=== PATIENT | female | born 1945 | race Caucasian/White ===

== ENCOUNTER 2018-08-25 05:16 | Inpatient (IN) | payer MEDICARE, BC ==
[~2018-08-25] VITALS: Ht 152.4 cm; Wt 48.1 kg
[2018-08-25] MEDS ORDERED: CELECOXIB 100 MG CAPSULE ONE (06:14)
[2018-08-25] MEDS ORDERED: ACETAMINOPHEN 325 MG TABLET ONE (06:14)
[2018-08-25] MEDS ORDERED: oxyCODONE HCL SR 10MG TAB.SR.12H PO ONE (06:14)
[2018-08-25] MEDS ORDERED: ANESTHESIA TRAY IN PYXIS 1 EA TRAY MC ONE (06:26)
[2018-08-25] MEDS ORDERED: TRANEXAMIC ACID 3,000 MG in SODIUM CHLORIDE IRRIG SOLUTION 70 ML IR ONE (07:30)
[2018-08-25] MEDS ORDERED: FENTANYL PF 250MCG/5ML AMPUL ONE (09:20)
[2018-08-25] MEDS ORDERED: HYDROMORPHONE 1 MG/1 ML DISP.SYRIN ONE ×2 (10:07→10:15)
--- NOTE | 2018-08-25 10:45 | NUR ---
M/S LONE LEAD LINEMAN NOTES RECEIVED PATIENT VIA GURNEY ACCOMPANIED BY 2 OR STAFF FOR S/P RIGHT TOTAL HIP ARTHROPLASTY. PATIENT A/OX4 AND RESPONSIVE TO ALL STIMULI, ABLE TO MAKE NEEDS KNOWN. RESPIRATION EVEN AND NON LABORED WITH NO ACUTE RESPIRATORY DISTRESS, ON OXYGEN AT 2LPM VIA N/C AND ABLE TO TOLERATE WELL. ABDOMEN SOFT AND NON DISTENDED WITH ACTIVE BOWEL SOUNDS TO ALL QUADRANTS. PATIENT DENIES PAIN AND DISCOMFORT AT THIS TIME. SKIN WARM TO TOUCH AND DRY. WITH ABDUCTION PILLOW PRESENT IN BETWEEN LEGS. IV SITE AT LEFT WRIST GAUGE 18 WITH NO S/SX OF INFILTRATION, PATENT IN FLUSHING. ALL ORDERS FROM OR UNDER DR. RASMUSSEN NOTED AND CARRIED OUT. ALL CONCERNS FROM, PATIENT ADDRESSED. PLACED CALL LIGHT WITHIN REACH TO ENSURE SAFETY. WILL CONTINUE TO EVALUATE CARE.
[2018-08-25] MEDS ORDERED: HYDROMORPHONE 1 MG/1 ML DISP.SYRIN IV PRN (11:00)
[2018-08-25] MEDS ORDERED: ACETAMINOPHEN 325 MG TABLET PO PRN (11:00)
[2018-08-25] MEDS ORDERED: ONDANSETRON HCL/PF 4 MG/2 ML VIAL IVP PRN (11:00)
[2018-08-25] MEDS ORDERED: HYDROCODONE/APAP 5/325MG 1 EACH TABLET PO PRN (11:00)
[2018-08-25] MEDS ORDERED: DOCUSATE SODIUM 250 MG CAPSULE PO PRN (11:00)
[2018-08-25] MEDS: IV LR 1000 ML 1,000 ML IV PRN (11:06)
[2018-08-25 16:00] VITALS: BP 163/99
[2018-08-25] MEDS: ANCEF 1 GM/50 ML D5W IV SCH ×2 (16:41)
--- NOTE | 2018-08-25 18:00 | NUR ---
M/S RN CLOSING NOTES PATIENT A/O X 4 AND ABLE TO MAKE NEEDS KNOWN, RESPONSIVE TO ALL STIMULI. RESPIRATION EVEN AND NON LABORED WITH NO ACUTE RESPIRATORY DISTRESS, OXYGEN AT 2LPM VIA NASAL CANNULA AND ABLE TO TOLERATE WELL. ABDOMEN SOFT AND NON DISTENDED WITH ACTIVE BOWEL SOUNDS TO ALL QUADRANTS, ABLE TO URINATE USING BEDPAN. PATIENT DENIES PAIN AND DISCOMFORT SINCE ADMITTED. SKIN WARM TO TOUCH AND DRY, ABDUCTED PILLOW IN BETWEEN LEGS, ICE PACK IN PLACE ON RIGHT HIP FOR S/P TOTAL ARTHROPLASTY. IV SITE AT LEFT WRIST GAUGE 18 WITH NO S/SX OF INFILTRATION, PATENT IN FLUSHING. IV RUNNING AT 75 ML/HR WITH LR. ALL CONCERNS ATTENDED. PLACED CALL LIGHT WITHIN REACH TO ENSURE SAFETY. ENDORSED PATIENT'S CARE TO NEXT SHIFT.
[2018-08-25] MEDS ORDERED: MIRT15TA PO (18:12)
[2018-08-25] MEDS ORDERED: LEVO50TA8 PO (18:12)
[2018-08-25] MEDS ORDERED: ATOR20TA PO (18:12)
[2018-08-25] MEDS ORDERED: CARV3.12 PO (18:12)
[2018-08-25] MEDS ORDERED: DULO60CA45 PO (18:12)
[2018-08-25] MEDS ORDERED: ALEN70TA6 PO (18:12)
[2018-08-25] MEDS ORDERED: MULT-1160 PO (18:12)
[2018-08-25] MEDS ORDERED: CALC1TAB2 PO (18:12)
[2018-08-25] MEDS ORDERED: DILT180C PO (18:12)
[2018-08-25] MEDS ORDERED: MAGN125C PO (18:12)
[2018-08-25] MEDS ORDERED: BENA20TA78 PO (18:12)
[2018-08-25] MEDS ORDERED: CARVEDILOL 3.125 MG TABLET PO ONE (18:57)
[2018-08-25] MEDS ORDERED: oxyCODONE IR immediate release 5 MG PO ONE (18:57)
[2018-08-25] MEDS ORDERED: CARVEDILOL 3.125 MG TABLET PO SCH ×2 (19:00→23:30)
[2018-08-25] MEDS ORDERED: oxyCODONE IR immediate release 5 MG PO PRN ×2 (19:00)
--- NOTE | 2018-08-25 19:26 | NUR ---
M/S RN CARVEDILOL ORDERED AT 1900 NOT GIVEN DUE TO DUPLICATE ORDER, GIVEN 185 COREG ORDERED.
[2018-08-25] MEDS ORDERED: diphenhydrAMINE HCL 25 MG CAPSULE PO PRN (19:30)
[2018-08-25] MEDS ORDERED: BISACODYL SUPP (10 MG) 10 MG/SUPP.RECT SUPP.RECT RC PRN ×2 (19:30→22:00)
[2018-08-25] MEDS ORDERED: MAG HYDROX/AL HYDROX/SIMETH 30 ML UDC PO PRN (19:30)
--- NOTE | 2018-08-25 19:30 | NUR ---
RECEIVED PATIENT IN BED AWAKE. AO X 3, ABLE TO MAKE NEEDS KNOWN. NO ACUTE DISTRESS NOTED. MONITORED FOR PAIN. IV SITE PATENT, INTACT; IVF INFUSING ORDERED. RIGHT HIP SURGICAL INCISION DRESSING INTACT. SAFETY REMINDERS GIVEN. ON LOW BED WITH BILATERAL UPPER SIDE RAILS UP. CALL MCCLURE WITHIN EASY REACH. WILL CONTINUE TO MONITOR.
--- NOTE | 2018-08-25 19:30 | NUR ---
M/S RN NOTES PATIENT TO BE DISCHARGED IN STABLE CONDITION, WAITING FOR AMBULANCE. IV ON LEFT WRIST AND RIGHT FA NO REMOVED YET. EXIT CARE PROVIDED TO PATIENT ESPECIALLY FOLLOW UPS NEEDED TO BE DONE WITH PCP AND MEDICATION TO ADMINISTERED ORDERED COMPLETELY. PATIENT REMAINED A/O X4, NO SHORTNESS OF BREATH NOTED. ABLE TO MOVE BOWELS TODAY, ABDOMEN SOFT AND NON DISTENDED. SITE FOR S/P CHOLECYSTECTOMY DRESSING CHANGED. DENIES PAIN AND DISCOMFORT. ENDORSED PATIENT CASE TO NEXT SHIFT.
[2018-08-25 20:00] VITALS: BP 170/103
[2018-08-25] MEDS: MORPHINE SULFATE INJ 4 MG/ML DISP.SYRIN IM PRN (21:24)
[2018-08-25] MEDS: FAMOTIDINE (20 MG) 20 MG TABLET PO SCH (21:24)
[2018-08-25] MEDS: MIRTAZAPINE 15 MG TABLET PO SCH (21:25)
[2018-08-25] MEDS ORDERED: SENNOSIDES 8.6 MG TABLET PO PRN (22:00)
[2018-08-25] MEDS ORDERED: ZOLPIDEM TARTRATE 5 MG TABLET PO PRN (22:00)
[2018-08-25] MEDS ORDERED: DILTIAZEM HCL CD 180 MG PO SCH (22:00)
[2018-08-26] MEDS: ANCEF 1 GM/50 ML D5W IV SCH ×2 (01:08)
[2018-08-26] MEDS: MORPHINE SULFATE INJ 4 MG/ML DISP.SYRIN IM PRN ×3 (01:21→15:45)
[2018-08-26] MEDS: IV LR 1000 ML 1,000 ML IV PRN (04:15)
[2018-08-26] MEDS ORDERED: oxyCODONE IR immediate release 5 MG PO PRN (04:30)
--- NOTE | 2018-08-26 04:40 | NUR ---
DR. PIÑA EDITED PATIENT'S MEDICINES: DILTIAZEM, COREG, LOTENSIN, OXY IR. PATIENT MADE AWARE.
--- NOTE | 2018-08-26 06:00 | NUR ---
PATIENT ASLEEP; EASILY AROUSABLE. RESPIRATION EVEN. NO SIGNS OF PAIN NOTED. DUE MEDS GIVEN WITH NO ASE NOTED. NEEDS ATTENDED. KEPT CLEAN AND DRY. SAFETY PRECAUTIONS AND COMFORT MEASURES IN PLACE. WILL GIVE REPORT TO DAY SHIFT FOR CONTINUITY OF CARE.
[2018-08-26 08:00] VITALS: BP 132/74
[2018-08-26] MEDS: DOCUSATE SODIUM 100 MG CAPSULE PO SCH ×2 (08:55→17:31)
[2018-08-26] MEDS: DULOXETINE HCL 30 MG CAPSULE.DR PO SCH (08:55)
[2018-08-26] MEDS: FAMOTIDINE (20 MG) 20 MG TABLET PO SCH ×2 (08:55→21:36)
[2018-08-26] MEDS: DILTIAZEM HCL CD 180 MG PO SCH (08:57)
[2018-08-26] MEDS ORDERED: BENAZEPRIL HCL 10 MG TABLET PO SCH (09:00)
[2018-08-26] MEDS: CARVEDILOL 3.125 MG TABLET PO SCH ×2 (11:30→16:51)
[2018-08-26 16:19] VITALS: BP 104/55
[2018-08-26] MEDS ORDERED: RIVAROXABAN 10 MG TABLET PO SCH (17:00)
--- NOTE | 2018-08-26 19:30 | NUR ---
RECEIVED PATIENT IN BED AWAKE. AO X 3, ABLE TO MAKE NEEDS KNOWN. NO ACUTE DISTRESS NOTED. MONITORED FOR PAIN. IV SITE PATENT, INTACT; FLUSHED. RIGHT HIP SURGICAL INCISION DRESSING INTACT. SAFETY REMINDERS GIVEN. ON LOW BED WITH BILATERAL UPPER SIDE RAILS UP. CALL MCCLURE WITHIN EASY REACH. WILL CONTINUE TO MONITOR.
[2018-08-26 20:00] VITALS: BP 91/46
[2018-08-26 20:15] VITALS: BP 91/46
[2018-08-26] MEDS: MIRTAZAPINE 15 MG TABLET PO SCH (21:36)
[2018-08-27] MEDS: oxyCODONE IR immediate release 5 MG PO PRN ×2 (02:28→10:22)
[2018-08-27 04:30] VITALS: BP 128/68
[2018-08-27 06:25] LABS: BASOPHILS % (AUTO) 0.2 % (0.0-2.0); EOSINOPHILS % (AUTO) 1.2 % (0.0-6.0); HEMATOCRIT 34 % (33-45); HEMOGLOBIN 11.1 g/dL (11.5-14.8); LYMPHOCYTES # (AUTO) 2.1 /CMM (0.8-4.8); LYMPHOCYTES % (AUTO) 26.6 % (20.0-44.0); MEAN CORPUSCULAR HGB CONC 33 g/dl (31.0-36.0); MEAN CORPUSCULAR VOLUME 83 fL (82-100); MONOCYTES # (AUTO) 0.9 /CMM (0.1-1.30); MONOCYTES % (AUTO) 11.1 % (2.0-12.0); NEUTROPHILS # (AUTO) 4.8 /CMM (1.8-8.9); NEUTROPHILS % (AUTO) 60.9 % (43.0-81.0); PLATELET COUNT (AUTO) 297 /CMM (150-450); RED BLOOD CELL COUNT(AUTO) 4.06 MIL/uL (4.0-5.2); WHITE BLOOD COUNT (AUTO) 7.9 K/uL (4.3-11.0)
[2018-08-27 06:50] LABS: CALCIUM, SERUM 8.2 mg/dL (8.5-10.1); CARBON DIOXIDE 28 mmol/L (21-32); CHLORIDE 104 mmol/L (98-107); CREATININE 0.7 mg/dL (0.6-1.3); GLUCOSE 93 mg/dL (74-106); POTASSIUM 4.3 mmol/L (3.5-5.1); SODIUM SERUM 138 mmol/L (136-145); UREA NITROGEN, BLOOD 12 mg/dL (7-18)
--- NOTE | 2018-08-27 07:00 | NUR ---
RN OPENING NOTES PT RESTING IN BED. NO COMPLAINTS OF PAIN, SOB OR DISTRESS AT THIS TIME. PT HAS LEFT WRIST IV #18 INTACT AND PATENT. POSSIBLE DC TODAY. SAFETY PRECAUTIONS IN PLACE, BED IN LOWEST, LOCKED POSITION, X2 SIDE RAILS UP AND CALL LIGHT WITHIN REACH. WILL CONTINUE TO MONITOR.
[2018-08-27 08:40] VITALS: BP 115/68
[2018-08-27] MEDS: FAMOTIDINE (20 MG) 20 MG TABLET PO SCH (08:52)
[2018-08-27] MEDS: DOCUSATE SODIUM 100 MG CAPSULE PO SCH (08:52)
[2018-08-27] MEDS: DULOXETINE HCL 30 MG CAPSULE.DR PO SCH (08:54)
[2018-08-27] MEDS: CARVEDILOL 3.125 MG TABLET PO SCH (08:55)
[2018-08-27] MEDS: DILTIAZEM HCL CD 180 MG PO SCH (10:22)
--- NOTE | 2018-08-27 12:59 | NUR ---
RN NOTES CALLED [facility]NAG[facility] TO FOLLOW UP WITH PATIENT BEFORE DISCHARGE.
[2018-08-27 15:59] VITALS: BP 113/71
--- NOTE | 2018-08-27 16:46 | NUR ---
CLINICAL PROJECT COORDINATOR NOTES PT STABLE AND ALERT. VITAL SIGNS WITHIN NORMAL. ALL PATIENT BELONGINGS SENT HOME WITH PATIENT. PER PATIENT WILL HAVE HELP AT HOME. COUSINHINA WILL TAKE PATIENT HOME. PT WILL HAVE HOME HEALTH. ALL PATIENT PAPERWORK EXPLAINED, SIGNED, COPIED AND GIVEN TO PATIENT. IV AND ID BAND REMOVED AT DISCHARGE. PT LEFT VIA WHEELCHAIR WITH FINISHER DENTURE.
[2018-08-27] MEDS ORDERED: BENAZEPRIL HCL 10 MG TABLET PO SCH (18:00)
== END 2018-08-27 16:44 | disposition home or self-care (01) | DRG 470 ==
LOC: DS 05:16 → MED 10:30 → MEDSG2 20:15
PROVIDERS: ADMIT Specialist; ATTEND Specialist
PROC: 0SR90JZ Replacement of Right Hip Joint with Synthetic Substitute, Open Approach (ICD-10-PCS; principal; 2018-08-25)
DX: M16.11 Unilateral primary osteoarthritis, right hip (principal); E03.9 Hypothyroidism, unspecified; G47.00 Insomnia, unspecified; I10 Essential (primary) hypertension; Z96.642 Presence of left artificial hip joint; Z79.01 Long term (current) use of anticoagulants; M81.0 Age-related osteoporosis without current pathological fracture; F41.9 Anxiety disorder, unspecified; E78.5 Hyperlipidemia, unspecified; Z88.5 Allergy status to narcotic agent; Z88.2 Allergy status to sulfonamides
CPT/HCPCS: 36415; 80048-TC; 85025-TC; 85027-TC; 86850-TC; 86921-TC; 87081-TC; 88305-TC; 88311-TC; 97110-TC; 97116-TC; 97530-TC; A4217; A6209; A6402; G0378; J0690; J1100; J1170; J2270; J2370; J2405; J2704; J3010; J3490; J7060; J7120